=== PATIENT | female | born 1970 | race African-American/Black ===

== ENCOUNTER 2018-04-17 05:29 | Inpatient (IN) | payer OTHER ==
[2018-04-11 10:20] VITALS: BMI 29.6
--- NOTE | 2018-04-17 07:08 | HP ---
History & Physical Update - Physical Physical: No Change - Assessment Assessment: No Change - Plan Plan: No Change (hx of menometrorrhagia, pelvic pain, fibroid uterus , for supracervical abdominal hysterectomy, bilateral salpingectomy)
[2018-04-17] MEDS ORDERED: ROPIVACAINE HCL 0.5% 30ML VIAL ONE (07:48)
[2018-04-17] MEDS ORDERED: MIDAZOLAM HCL 2 MG/2 ML SINGLE DOSE VIAL ONE ×2 (07:49)
--- NOTE | 2018-04-17 08:12 | HP ---
Past Medical History - Primary Care Physician PCP:: Jose Rafael Moore - Admission Chief Complaint: pelvic pain, fibroid uterus , menometrorrhagia History of Present Illness: 48 yo f with hx of pelvic pain, menometrorrhagia , fibroid uterus, txed with OCP did not help, requesting and admitted for supracervical abdominal hysterectomy, bilateral salpingectomy. risks of procedure and ulternatives has explained to patient History Source: Patient Limitations to Obtaining History: No Limitations - Past Medical History ...: 2 ...Para: 2 Heme/Onc: Yes: Anemia - Past Surgical History Hx Myomectomy: No Hx Transabdominal Cerclage: No - Smoking History Smoking history: Never smoked - Alcohol/Substance Use Hx Alcohol Use: No - Social History History of Recent Travel: No Home Medications - Allergies Allergies/Adverse Reactions: Allergies Allergy/AdvReac Type Severity Reaction Status Date / Time No Known Allergies Allergy Verified 04/17/18 06:50 - Home Medications Home Medications: Ambulatory Orders Oral Control 1 tab PO DAILY 04/11/18 Multivitamin [One-Daily Multi-Vitamin] 1 each PO DAILY 04/17/18 Review of Systems - Review of Systems Constitutional: reports: No Symptoms HENT: reports: No Symptoms Neck: reports: No Symptoms Cardiovascular: reports: No Symptoms Respiratory: reports: No Symptoms Gastrointestinal: reports: Abdominal Pain, Bloating Genitourinary: reports: Frequency Breasts: reports: No Symptoms Reported Musculoskeletal: reports: No Symptoms Integumentary: reports: No Symptoms Neurological: reports: No Symptoms Endocrine: reports: No Symptoms Hematology/Lymphatic: reports: No Symptoms Psychiatric: reports: No Symptoms 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: Vital Signs Temperature 98.5 F 04/17/18 06:47 Pulse Rate 82 04/17/18 06:47 Respiratory Rate 20 04/17/18 06:47 Blood Pressure 151/91 04/17/18 06:47 O2 Sat by Pulse Oximetry (%) 100 04/17/18 06:46 Constitutional: Yes: Well Nourished, No Distress, Calm Eyes: Yes: WNL, Conjunctiva Clear, EOM Intact HENT: Yes: WNL, Atraumatic, Normocephalic Neck: Yes: WNL, Supple, Trachea Midline Cardiovascular: Yes: WNL, Regular Rate and Rhythm Respiratory: Yes: WNL, Regular, CTA Bilaterally Gastrointestinal: Yes: WNL ...Rectal Exam: Yes: WNL Renal/: Yes: WNL Cervix: Yes: Normal Uterus: Yes: Enlarged, Lumpy, Mass, Tender Adnexa: Not Palpable: Left, Right Breast(s): Yes: WNL Musculoskeletal: Yes: WNL Extremities: Yes: WNL Edema: No Integumentary: Yes: WNL Neurological: Yes: WNL, Alert, Oriented ...Motor Strength: WNL Psychiatric: Yes: WNL, Alert, Oriented Problem List - Problem (1) Pelvic pain Code(s): R10.2 - PELVIC AND PERINEAL PAIN (2) Menometrorrhagia Code(s): N92.1 - EXCESSIVE AND FREQUENT MENSTRUATION WITH IRREGULAR CYCLE (3) Fibroid, uterine Code(s): D25.9 - LEIOMYOMA OF UTERUS, UNSPECIFIED Qualifiers: Uterine leiomyoma location: intramural Qualified Code(s): D25.1 - Intramural leiomyoma of uterus Assessment/Plan supracervical abdominal hysterectomy , bilateral salpingectomy. rba discussed with patient
[2018-04-17] MEDS ORDERED: LIDOCAINE HCL/PF 2% SDV 5ML VIAL ONE (08:17)
[2018-04-17] MEDS ORDERED: fentaNYL CITRATE 250 MCG/5 ML VIAL ONE (08:17)
[2018-04-17] MEDS ORDERED: ROCURONIUM BROMIDE 50 MG/5 ML VIAL ONE (08:18)
[2018-04-17] MEDS ORDERED: PROPOFOL 20 ML ONE ×2 (08:18)
[2018-04-17] MEDS ORDERED: ceFAZolin SODIUM 1 GM VIAL IVPB ONE (08:20)
[2018-04-17] MEDS ORDERED: ceFAZolin SODIUM 1 GM VIAL ONE (08:48)
[2018-04-17] MEDS ORDERED: NEOSTIGMINE METHYLSULFATE 0.5 MG/ML - 10 ML MDV ONE (08:48)
[2018-04-17] MEDS ORDERED: DEXAMETHASONE SOD PHOSPHATE 4 MG/1 ML VIAL ONE ×2 (08:48→08:49)
[2018-04-17] MEDS ORDERED: GLYCOPYRROLATE 0.2 MG/1 ML VIAL ONE (08:48)
[2018-04-17] MEDS ORDERED: IBUPROFEN 800 MG/8 ML IJ IVPB PRN ×2 (10:09→10:28)
[2018-04-17] MEDS ORDERED: ACETAMINOPHEN 1000 MG/100 ML VIAL (NON FORMULARY) IVPB PRN (10:09)
[2018-04-17] MEDS ORDERED: ONDANSETRON 4 MG/2 ML VIAL IVPUSH PRN (10:28)
[2018-04-17] MEDS ORDERED: HYDROmorphone *PCA* 10MG/50ML DISP.SYRIN PCA SCH (11:15)
[2018-04-17] MEDS: HYDROmorphone *PCA* 10MG/50ML DISP.SYRIN PCA SCH ×2 (11:25→13:34)
[2018-04-17] MEDS: ELECTROLYTE-148 SOLN 1,000 ML IV SCH ×2 (11:25→19:00)
--- NOTE | 2018-04-17 11:50 | OP ---
DATE OF OPERATION: 04/17/2018 PREOPERATIVE DIAGNOSIS: Menometrorrhagia, pelvic pain, fibroid uterus. POSTOPERATIVE DIAGNOSIS: Menometrorrhagia, pelvic pain, fibroid uterus. PROCEDURE: Supracervical abdominal hysterectomy, bilateral salpingectomy. SURGEON: Jose Rafael Moore MD WHITING MACHINE OPERATOR: Saúl Keane MD ANESTHESIA: General. ANESTHESIOLOGIST: Ebonie Barry MD ESTIMATED BLOOD LOSS: 200 mL. DESCRIPTION OF PROCEDURE: The patient was taken to the operating room, had adequate general anesthesia. Abdomen and perineum were prepped and draped. A Pfannenstiel abdominal skin incision was made. Abdominal wall was cut layer by layer, until peritoneum was exposed and incised. Upon entering the abdominal cavity, lower uterine segment was identified. Bowels were packed away. Uterus was irregular, enlarged, with multiple fibroids extending up to the below umbilical area. Both ovaries appeared to be normal and bladder was normal. Cul-de-sac was free of adhesions. Then, upper abdomen was checked, bowels were packed away, and then, both cornual region of the uterus was grasped with towel clamps, and then both round ligaments were identified bilaterally, clamped with bipolar LigaSure cautery, cauterized and cut. The anterior leaf of broad ligament was opened, and the bladder was pushed down. Then, right and left tubes were grasped with Laquita clamp and along the mesosalpinx with LigaSure cautery, cauterized, and the tube was removed. Then, a hole was made into the broad ligament, and the uteroovarian ligament was clamped with Paul clamp, cut, and the clamp replaced with 0 Vicryl ties bilaterally. At this time, bladder was further pushed down. Uterine artery was identified bilaterally, clamped with Paul clamp, cut, and the clamp replaced with 0 Vicryl suture bilaterally. Paracervical area was clamped with Paul clamp and cut, and the clamp replaced using 0 Vicryl suture bilaterally. Then, the uterosacral ligament was clamped with a LigaSure cautery, cauterized and cut, and then, the uterus was removed above the cervix. The cervix was sutured with interrupted suture of 1 Vicryl. Then, hemostasis was established with interrupted suture of 0 Vicryl. No active bleeding was seen. Pelvic cavity several times irrigated. Both ovaries evaluated. No bleeding was seen. The ureters were manually checked and appeared to be normal. Then, urine was clear. All the lap pad, sponge, and instrument counts were correct. Peritoneum was closed with 0 Vicryl continuous suture. Muscles were brought together with interrupted suture of 0 Vicryl. Fascia was closed with 0 Vicryl continuous suture, subcutaneous fat with interrupted suture of 0 Vicryl, and skin was closed with 4-0 Biosyn continuous subcuticular suture. Patient tolerated the procedure well, left the OR in good condition. Clifton [id number]
[2018-04-17] MEDS: LACTATED RINGERS SOLUTION 1,000 ML IV SCH (13:33)
[2018-04-17] MEDS: CEFAZOLIN 2 GM/D5W 2 GM/50 ML ML IVPB SCH (17:25)
[2018-04-17] MEDS ORDERED: ceFAZolin 2 GRAM PREMIX BAG IVPB SCH (18:00)
[2018-04-18] MEDS: CEFAZOLIN 2 GM/D5W 2 GM/50 ML ML IVPB SCH ×2 (01:17→09:02)
[2018-04-18] MEDS: ONDANSETRON 4 MG/2 ML VIAL IVPUSH PRN ×2 (01:46→09:35)
[2018-04-18 07:41] LABS: HEMATOCRIT 29.8 % (32.4-45.2); HEMOGLOBIN 10.3 GM/dL (10.7-15.3); MCH 30.1 pg (25.7-33.7); MCHC 34.4 g/dl (32.0-36.0); MEAN CELL VOLUME 87.3 fl (80-96); MEAN PLT VOLUME 9.9 fl (7.5-11.1); PLATELET COUNT 218 K/MM3 (134-434); RBC 3.41 M/mm3 (3.60-5.2); RDW 13.4 % (11.6-15.6); WHITE BLOOD COUNT 9.1 K/mm3 (4.0-10.0)
[2018-04-18] MEDS ORDERED: oxyCODONE HCL 5 MG TABLET PO PRN (08:05)
[2018-04-18] MEDS ORDERED: BISACODYL 5 MG TABLET.DR (FP) PO PRN (08:06)
[2018-04-18] MEDS ORDERED: ACETAMINOPHEN 325 MG TABLET (FP) PO PRN (08:13)
[2018-04-18 08:23] LABS: ANION GAP 9 MMOL/L (8-16); BLOOD UREA NITROGEN 8 mg/dL (7-18); CALCIUM 7.7 mg/dL (8.5-10.1); CHLORIDE 103 mmol/L (98-107); CO2 26 mmol/L (21-32); CREATININE 0.6 mg/dL (0.55-1.3); GLUCOSE,RANDOM 98 mg/dL (74-106); POTASSIUM 3.9 mmol/L (3.5-5.1); SODIUM 138 mmol/L (136-145)
[2018-04-18] MEDS: oxyCODONE HCL 5 MG TABLET PO PRN ×2 (09:00→15:05)
[2018-04-18] MEDS: IBUPROFEN 600 MG TABLET (FP) PO PRN ×2 (09:01→15:06)
[2018-04-18] MEDS: SIMETHICONE 80 MG TAB.CHEW (FP) PO PRN ×2 (09:02→15:06)
[2018-04-18] MEDS: ENOXAPARIN NA (PORCINE) 40 MG/0.4 ML DISP.SYRIN SQ SCH (09:02)
[2018-04-18] MEDS ORDERED: PCA PUMP KEY 1 EACH EACH ONE (09:43)
--- NOTE | 2018-04-18 11:36 | PN ---
Progress Note (short form) - Note Progress Note: ANESTHESIOLOGY POST-OP CHECK 48F s/p MATT-BS under general anesthesia, POD #1. No acute complaints. Pain 4/10 and tolerable. Denies N/V. Vital Signs Temperature 98 F 04/18/18 02:00 Pulse Rate 63 04/18/18 02:00 Respiratory Rate 18 04/18/18 02:00 Blood Pressure 128/58 L 04/18/18 02:00 O2 Sat by Pulse Oximetry (%) 98 04/17/18 21:00 Active Medications Acetaminophen (Tylenol -) 650 mg PO Q4H PRN PRN Reason: PAIN LEVEL 1-5 Bisacodyl (Dulcolax -) 10 mg PO DAILY PRN PRN Reason: CONSTIPATION Enoxaparin Sodium (Lovenox -) 40 mg SQ DAILY [facility] Last Admin: 04/18/18 09:02 Dose: 40 mg Fentanyl (Sublimaze Injection -) 50 mcg IVPUSH [id number] PRN PRN Reason: PAIN-PACU ORDER X 4 DOSES ONLY Last Admin: 04/17/18 10:30 Dose: 50 mcg Lactated Ringer's (Lactated Ringers Solution) 1,000 mls @ 125 mls/hr IV ASDIR MARINE Last Admin: 04/17/18 13:33 Dose: Not Given Parenteral Electrolytes (Plasma-Lyte 148 -) 1,000 mls @ 125 mls/hr IV ASDIR MARINE Last Admin: 04/17/18 19:00 Dose: 125 mls/hr Cefazolin Sodium/Dextrose (Ancef 2 Gm Premixed Ivpb -) 2 gm in 50 mls @ 100 mls /hr IVPB Q8H-IV MARINE Stop: 04/18/18 17:59 Last Admin: 04/18/18 09:02 Dose: 100 mls/hr Ibuprofen (Caldolor Injection -) 800 mg IVPB Q6H PRN PRN Reason: Pain - Pacu Last Admin: 04/17/18 10:40 Dose: 800 mg Ibuprofen (Motrin -) 600 mg PO Q6H PRN PRN Reason: FEVER Last Admin: 04/18/18 09:01 Dose: 600 mg Ibuprofen (Caldolor Injection -) 800 mg IVPB Q6H PRN PRN Reason: Fever - If PO not effective. Ondansetron HCl (Zofran Injection) 4 mg IVPUSH Q6H PRN PRN Reason: NAUSEA Oxycodone HCl (Roxicodone -) 5 mg PO Q4H PRN PRN Reason: PAIN LEVEL 1-5 Last Admin: 04/18/18 09:00 Dose: 5 mg Oxycodone HCl (Roxicodone -) 10 mg PO Q6H PRN PRN Reason: PAIN LEVEL 6-10 Simethicone (Mylicon -) 80 mg PO Q4H PRN PRN Reason: GAS Last Admin: 04/18/18 09:02 Dose: 80 mg Gen: awake, alert, NAD No apparent anesthesia complications, pain well controlled. 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
[2018-04-18] MEDS: LACTATED RINGERS SOLUTION 1,000 ML IV SCH (12:00)
[2018-04-18] MEDS ORDERED: BISACODYL 10 MG SUPP.RECT RC PRN (15:28)
--- NOTE | 2018-04-18 15:34 | PATH ---
Surgical Pathology Report Patient Name: ZOILA STARR [facility]. Rec. 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 Specimen(s) Received A: RIGHT FALLOPIAN TUBE B: LEFT FALLOPIAN TUBE C: UTERUS Clinical History Menorrhagia, pelvic pain, fibroid uterus Final Diagnosis A. FALLOPIAN TUBE, RIGHT, SALPINGECTOMY: FALLOPIAN TUBE WITH WALTHARD NEST/CYST (INCLUDING FIMBRIATED END AND FULL LUMINAL PORTION). B. FALLOPIAN TUBE, LEFT, SALPINGECTOMY: UNREMARKABLE FALLOPIAN TUBE (INCLUDING FIMBRIATED END AND FULL LUMINAL PORTION). C. UTERUS, SUPRACERVICAL HYSTERECTOMY: SUBSEROSAL AND INTRAMURAL LEIOMYOMA(TA). PREDOMINANTLY DENUDED ENDOMETRIUM WITH RARE ENDOMETRIAL GLANDS. SCANT BENIGN ENDOCERVICAL MUCOSA. Electronically Signed Glory Tong M.D. Gross Description A. Received in formalin labeled "right fallopian tube," is a 5.5 cm in length fimbriated fallopian tube. The outer surface is castillo purple and smooth. Sectioning reveals an unremarkable lumen. Fur Vault Attendant sections are submitted in 2 cassettes as follows: 1-fimbria; 2-cross sections of fallopian tube. B. Received in formalin labeled "left fallopian tube," is a 6.5 cm in length fimbriated fallopian tube. The outer surface is castillo purple and smooth. Sectioning reveals unremarkable lumen. Fur Vault Attendant sections are submitted in 2 cassettes as follows: 1-fimbria; 2-cross sections of fallopian tube. C. Received in formalin labeled "uterus," is a 430 g supracervically amputated uterus with no attached adnexa. The specimen measures 10 cm from superior to inferior, 9 cm from left to right and 6.5 cm from anterior to posterior. The serosa is rosado-pink with multiple bulging subserosal nodules. The endometrial cavity measures 5.7 cm in length and 4 cm from cornu to cornu. There is a 4.5 cm in greatest dimension submucosal nodule occupying the endometrial cavity. The endometrium is rosado-red and measures 0.1 cm in thickness. The myometrium displays abundant intramural nodules, measuring up to 3.8 cm in greatest dimension. The largest intramural nodule is degenerative. The remaining intramural nodules are rosado and rubbery with whorled architecture. The remaining myometrium is rosado-pink and measures up to 4 cm in thickness. Fur Vault Attendant sections are submitted in 13 cassettes as follows: 1-cervical stump margin of resection; 8-5-hnuaidxhtajiwi; 9-2-eoqfnozqfb nodule; 6-5-xxcjttzpyz nodules; 87-98-pzpqkuh intramural nodule; 01-68-rzldyaykri intramural nodules. 04/17/201804/17/2018
--- NOTE | 2018-04-18 19:52 | PN ---
Progress Note (short form) - Note Progress Note: pod 1 s/p hysterectomy, has mild incision pain ,voids ok passing gas CBC, BMP 04/18/18 07:00 04/18/18 07:00 Last Vital Signs Temp Pulse Resp BP Pulse Ox 99.0 F 72 20 127/74 100 04/18/18 16:38 04/18/18 16:38 04/18/18 16:38 04/18/18 16:38 04/18/18 08:00 abdomen soft, no distension, no cva , BS present no calf tenderness no vaginal bleeding or discharge plan ambulate, advance diet plan for d/c home in am if afebrile Problem List - Problems (1) Pelvic pain Code(s): R10.2 - PELVIC AND PERINEAL PAIN (2) Menometrorrhagia Code(s): N92.1 - EXCESSIVE AND FREQUENT MENSTRUATION WITH IRREGULAR CYCLE (3) Fibroid, uterine Code(s): D25.9 - LEIOMYOMA OF UTERUS, UNSPECIFIED Qualifiers: Uterine leiomyoma location: intramural Qualified Code(s): D25.1 - Intramural leiomyoma of uterus
[2018-04-18] MEDS: ELECTROLYTE-148 SOLN 1,000 ML IV SCH (20:58)
[2018-04-19] MEDS: IBUPROFEN 600 MG TABLET (FP) PO PRN ×2 (00:02→10:42)
[2018-04-19] MEDS: oxyCODONE HCL 5 MG TABLET PO PRN ×2 (00:02→10:41)
[2018-04-19] MEDS: SIMETHICONE 80 MG TAB.CHEW (FP) PO PRN ×2 (00:02→10:42)
[2018-04-19 08:39] VITALS: BP 140/86; PULSE 81
[2018-04-19] MEDS: ENOXAPARIN NA (PORCINE) 40 MG/0.4 ML DISP.SYRIN SQ SCH (09:17)
[2018-04-19 10:02] LABS: BASO % 0.6 % (0-2.0); EOS % 0.7 % (0-4.5); HEMATOCRIT 30.6 % (32.4-45.2); HEMOGLOBIN 10.5 GM/dL (10.7-15.3); LYMPH % 14.2 % (8-40); MCH 29.9 pg (25.7-33.7); MCHC 34.3 g/dl (32.0-36.0); MEAN PLT VOLUME 9.4 fl (7.5-11.1); MONO % 9.5 % (3.8-10.2); PLATELET COUNT 223 K/MM3 (134-434); RBC 3.51 M/mm3 (3.60-5.2); RDW 13.6 % (11.6-15.6); WHITE BLOOD COUNT 6.8 K/mm3 (4.0-10.0)
[2018-04-19 12:19] VITALS: TEMP 98.3
--- NOTE | 2018-04-19 19:38 | PN ---
Progress Note (short form) - Note Progress Note: pod 2 doing well , no c/o passing gas, voids ok, ambulating CBC, BMP 04/19/18 09:50 04/18/18 07:00 Last Vital Signs Temp Pulse Resp BP Pulse Ox 98.3 F 81 20 140/86 99 04/19/18 12:10 04/19/18 07:30 04/19/18 07:30 04/19/18 07:30 04/19/18 07:30 abdomen soft, non tender,BS present, no distension incision dry, clean no calf tenderness plan d/c home ,follow up office 2 weeks Problem List - Problems (1) Pelvic pain Code(s): R10.2 - PELVIC AND PERINEAL PAIN (2) Menometrorrhagia Code(s): N92.1 - EXCESSIVE AND FREQUENT MENSTRUATION WITH IRREGULAR CYCLE (3) Fibroid, uterine Code(s): D25.9 - LEIOMYOMA OF UTERUS, UNSPECIFIED Qualifiers: Uterine leiomyoma location: intramural Qualified Code(s): D25.1 - Intramural leiomyoma of uterus
--- NOTE | 2018-04-19 19:39 | DS ---
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 Vital Signs: Vital Signs Temperature 98.3 F 04/19/18 12:10 Pulse Rate 81 04/19/18 07:30 Respiratory Rate 20 04/19/18 07:30 Blood Pressure 140/86 04/19/18 07:30 O2 Sat by Pulse Oximetry (%) 99 04/19/18 07:30 Constitutional: Yes: Well Nourished, No Distress, Calm Eyes: Yes: WNL, Conjunctiva Clear, EOM Intact HENT: Yes: WNL, Atraumatic, Normocephalic Neck: Yes: WNL, Supple, Trachea Midline Cardiovascular: Yes: WNL, Regular Rate and Rhythm Respiratory: Yes: WNL, Regular, CTA Bilaterally Gastrointestinal: Yes: WNL ...Rectal Exam: Yes: WNL Renal/: Yes: WNL Breast(s): Yes: WNL Musculoskeletal: Yes: WNL Extremities: Yes: WNL Edema: No Integumentary: Yes: WNL Wound/Incision: Yes: Clean/Dry, Well Approximated, Sutures Intact Neurological: Yes: WNL, Alert, Oriented ...Motor Strength: WNL Psychiatric: Yes: WNL, Alert, Oriented Labs: CBC, BMP 04/19/18 09:50 04/18/18 07:00 Discharge Summary Reason For Visit: IRREGULAR PERIODS/FIBROIDS UTERUS Procedures: Principal: suprcervical abdominal hysterectomy, Other Procedures: bilateral salpingectomy Condition: Good - Instructions Diet, Activity, Other Instructions: regular diet, no intercourse, follow up office 2 weeks, if fever , severe pain heavy vaginal bleeding call office Referrals: Jose Rafael Moore MD [Staff Physician] - Disposition: HOME - Home Medications Comprehensive Discharge Medication List: Ambulatory Orders Oral Control 1 tab PO DAILY 04/11/18 Ibuprofen [Motrin -] 600 mg PO QID #28 tablet 04/17/18 Multivitamin [One-Daily Multi-Vitamin] 1 each PO DAILY 04/17/18 oxyCODONE HCL [Roxicodone -] 5 mg PO Q6H PRN #20 tablet MDD 4 04/19/18
== END 2018-04-19 13:20 | disposition home or self-care (01) | DRG 743 ==
LOC: JSAMEDAYSX 05:29 → J3W 13:17
PROVIDERS: ADMIT Obstetrics & Gynecology; ATTEND Obstetrics & Gynecology
PROC: 0UT70ZZ Resection of Bilateral Fallopian Tubes, Open Approach (ICD-10-PCS; 2018-04-17)
PROC: 0UT90ZL Resection of Uterus, Supracervical, Open Approach (ICD-10-PCS; principal; 2018-04-17 08:00)
DX: D25.1 Intramural leiomyoma of uterus (principal)
CPT/HCPCS: 36415; 80048; 84703; 85025; 85027; 86850; 86900; 86901; 88302-TC; 88305-TC; 94010; 94760